=== PATIENT | male | born 1980 | race Caucasian/White ===

== ENCOUNTER 2017-09-13 20:52 | Emergency (ER) | payer BC, SELFPAY ==
[2017-09-13] MEDS ORDERED: Bacitracin Zinc 1 Packet ONE (22:21)
[2017-09-13] MEDS ORDERED: Adacel (T-DAP) 0.5 ML VIAL ONE (22:34)
== END 2017-09-13 22:44 | disposition home or self-care (01) ==
LOC: ERS 20:52
DX: S61.412A Laceration without foreign body of left hand, initial encounter (principal); F17.210 Nicotine dependence, cigarettes, uncomplicated; W26.0XXA Contact with knife, initial encounter
CPT/HCPCS: 12001; 90471; 90715

== ENCOUNTER 2025-06-10 09:33 | Emergency (ER) | payer SELFPAY ==
[2025-06-10] MEDS ORDERED: Lidocaine/Transparent Dressing 1 EACH KIT ONE (09:46)
[2025-06-10] MEDS ORDERED: Amoxicillin/Potassium Clav 875 MG TAB ONE (09:52)
[2025-06-10] MEDS ORDERED: Lidocaine 1% PF 5 ML VIAL ONE (09:55)
== END 2025-06-10 10:59 | disposition home or self-care (01) ==
LOC: ERS 09:33
DX: S51.811A Laceration without foreign body of right forearm, initial encounter (principal); F17.210 Nicotine dependence, cigarettes, uncomplicated; W30.89XA Contact with other specified agricultural machinery, initial encounter
CPT/HCPCS: 12002; 99283